=== PATIENT | male | born 1965 ===

== ENCOUNTER 2021-02-28 06:00 | Outpatient (RCR) | payer OTHER, SELFPAY | END 2021-03-01 23:59 | disposition home or self-care (01) | LOC: GPT 06:00 | PROVIDERS: PCP Emergency Medicine; Referring Provider Orthopaedic Surgery Pediatric Orthopaedic Surgery; Visit Provider Orthopaedic Surgery Pediatric Orthopaedic Surgery | DX: Z47.1 Aftercare following joint replacement surgery (principal); Z96.651 Presence of right artificial knee joint | CPT/HCPCS: 97110; 97116; 97161; 97530 ==

== ENCOUNTER 2021-03-02 06:00 | Outpatient (RCR) | payer OTHER, SELFPAY | END 2021-04-01 23:59 | disposition home or self-care (01) | LOC: GPT 06:00 | PROVIDERS: PCP Emergency Medicine; Referring Provider Orthopaedic Surgery Pediatric Orthopaedic Surgery; Visit Provider Orthopaedic Surgery Pediatric Orthopaedic Surgery | DX: Z47.1 Aftercare following joint replacement surgery (principal); Z96.651 Presence of right artificial knee joint | CPT/HCPCS: 97110; 97116; 97164; 97530 ==

== ENCOUNTER 2021-04-02 06:00 | Outpatient (RCR) | payer OTHER, SELFPAY | END 2021-05-01 23:59 | disposition home or self-care (01) | LOC: GPT 06:00 | PROVIDERS: PCP Emergency Medicine; Referring Provider Orthopaedic Surgery Pediatric Orthopaedic Surgery; Visit Provider Orthopaedic Surgery Pediatric Orthopaedic Surgery | DX: Z47.1 Aftercare following joint replacement surgery (principal); Z96.651 Presence of right artificial knee joint | CPT/HCPCS: 97110; 97530 ==

== ENCOUNTER 2021-05-02 06:00 | Outpatient (RCR) | payer OTHER, SELFPAY | END 2021-06-01 23:59 | disposition home or self-care (01) | LOC: GPT 06:00 | PROVIDERS: PCP Emergency Medicine; Referring Provider Orthopaedic Surgery Pediatric Orthopaedic Surgery; Visit Provider Orthopaedic Surgery Pediatric Orthopaedic Surgery | DX: Z47.1 Aftercare following joint replacement surgery (principal); Z96.651 Presence of right artificial knee joint | CPT/HCPCS: 97110; 97112; 97116; 97164; 97530 ==

== ENCOUNTER 2022-10-22 06:00 | Outpatient (RCR) | payer OTHER, SELFPAY | END 2022-10-30 23:59 | disposition home or self-care (01) | LOC: GPT 06:00 | PROVIDERS: Visit Provider Student in an Organized Health Care Education/Training Program | DX: Z96.651 Presence of right artificial knee joint (principal) | CPT/HCPCS: 97140; 97162; 97530 ==

== ENCOUNTER 2022-10-31 06:00 | Outpatient (RCR) | payer OTHER, SELFPAY | END 2022-11-29 23:59 | disposition home or self-care (01) | LOC: GPT 06:00 | PROVIDERS: Visit Provider Student in an Organized Health Care Education/Training Program | DX: Z47.1 Aftercare following joint replacement surgery (principal); Z96.651 Presence of right artificial knee joint; M25.561 Pain in right knee; M22.2X1 Patellofemoral disorders, right knee; R26.2 Difficulty in walking, not elsewhere classified | CPT/HCPCS: 97110; 97535 ==